=== PATIENT | female | born 1970 | race Caucasian/White ===

== ENCOUNTER 2017-11-09 15:59 | Emergency (ER) | payer MEDICAID, OTHER ==
[~2017-11-09] VITALS: Ht 162.6 cm; Wt 74.6 kg
[~2017-11-09 15:59] MED LIST: AMOX1TAB61 PO; GABA-826 PO; GABA300C10 PO; HYDR-3342 PO; HYDR200T PO; LEVO25TA45 PO; METH750T2 PO; OMEP40CA3 PO; PARO20TA98 PO; PRED50TA PO; RANI150T8 PO; TRAM50TA2 PO
[2017-11-09 16:04] VITALS: BP 167/98
[2017-11-09] MEDS ORDERED: DIAZEPAM 5 MG TABLET PO ONE (17:30)
[2017-11-09] MEDS ORDERED: OXYcodone/APAP 5/325MG TABLET PO ONE (17:30)
[2017-11-09] MEDS ORDERED: DIAZEPAM 5 MG TABLET ONE (17:35)
[2017-11-09] MEDS ORDERED: OXYcodone/APAP 5/325MG TABLET ONE (17:36)
[2017-11-09] MEDS ORDERED: ONDANSETRON ODT 4 MG ONE (17:40)
[2017-11-09] MEDS ORDERED: ONDANSETRON ODT 4 MG PO ONE (18:00)
== END 2017-11-09 18:05 | disposition home or self-care (01) ==
LOC: ED 18:01
DX: S46.011A Strain of muscle(s) and tendon(s) of the rotator cuff of right shoulder, initial encounter (principal); X58.XXXA Exposure to other specified factors, initial encounter; Y93.89 Activity, other specified; Y92.89 Other specified places as the place of occurrence of the external cause; Y99.8 Other external cause status
CPT/HCPCS: 73030; 99284; Q0162

== ENCOUNTER 2018-05-18 09:01 | Emergency (ER) | payer OTHER ==
[~2018-05-18 09:01] MED LIST changes: -HYDR200T PO; +HYDR200T72 PO; +RANI150T23 PO; -RANI150T8 PO
[2018-05-18] MEDS ORDERED: SODIUM CHLORIDE 0.9% 1,000 ML IV ONE (10:23)
[2018-05-18] MEDS ORDERED: MORPHINE SULFATE 4 MG/ML, 1ML IVPush PRN (10:30)
[2018-05-18] MEDS ORDERED: ONDANSETRON 2MG/ML, 2ML IVPush ONE (10:30)
[2018-05-18] MEDS ORDERED: SODIUM CHLORIDE FLUSH 10ML SYR IVF ONE (10:30)
[2018-05-18] MEDS ORDERED: SODIUM CHLORIDE 0.9% 1,000ML IVBOLUS ONE (10:30)
[2018-05-18] MEDS ORDERED: MORPHINE SULFATE 4 MG/ML, 1ML ONE (10:31)
[2018-05-18] MEDS ORDERED: ONDANSETRON 2MG/ML, 2ML ONE (10:31)
[2018-05-18 10:56] LABS: MEAN CORPUSCULAR HEMOGLOBIN 32.9 pg (27.0-34.8); MEAN CORPUSCULAR VOLUME 96.9 fL (80-100); MEAN PLATELET VOLUME 8.2 fL (7.4-10.4); PLATELET COUNT 326 x10^3/uL (130-400); RED BLOOD COUNT 5.06 x10^6/uL (3.82-5.3); RED CELL DISTRIBUTION WIDTH 13.9 % (9.6-15.2)
[2018-05-18] MEDS ORDERED: PLEASE ENTER HEIGHT AND WEIGHT MC SCH (11:00)
[2018-05-18 11:11] LABS: ALBUMIN 3.6 g/dL (3.4-5.0); ANION GAP 8 mmol/L (5-15); CALCIUM 9.1 mg/dL (8.5-10.1); CHLORIDE 109 mmol/L (98-107)
[2018-05-18 11:17] LABS: ALANINE AMINOTRANSFERASE 24 U/L (12-78); ALKALINE PHOSPHATASE 84 U/L (45-117); BILIRUBIN,TOTAL 0.5 mg/dL (0.2-1.0); CREATININE 0.99 mg/dL (0.55-1.02); TOTAL PROTEIN 6.9 g/dL (6.4-8.2)
[2018-05-18] MEDS ORDERED: PROMETHAZINE 25 MG/ML, 1ML IM ONE (12:00)
[2018-05-18] MEDS ORDERED: PROMETHAZINE 25 MG/ML, 1ML ONE (12:08)
[2018-05-18 12:14] LABS: CULTURE INDICATED? YES; MICROSCOPIC INDICATED
[2018-05-18 12:24] LABS: MD SCAN
[2018-05-18 12:25] LABS: BASOPHILS # (AUTO) 0.01 x10^3/uL (0-0.1); BASOPHILS % (AUTO) 0 % (0-1); EOSINOPHILS # (AUTO) 0.09 x10^3/uL (0-0.4); EOSINOPHILS % (AUTO) 1 % (1-7); LYMPHOCYTES # (AUTO) 0.69 x10^3/uL (1-3.4); LYMPHOCYTES % (AUTO) 4 % (22-44); MONOCYTES # (AUTO) 0.45 x10^3/uL (0.2-0.8); MONOCYTES % (AUTO) 2 % (2-9); NEUTROPHILS # (AUTO) 17.73 x10^3/uL (1.8-6.8); NEUTROPHILS % (AUTO) 94 % (42-75)
[2018-05-18 15:18] VITALS: BP 104/63
== END 2018-05-18 15:23 | disposition home or self-care (01) ==
LOC: ED 15:17
DX: R10.84 Generalized abdominal pain (principal); K52.89 Other specified noninfective gastroenteritis and colitis; E86.0 Dehydration; G89.29 Other chronic pain; M54.9 Dorsalgia, unspecified; Z88.8 Allergy status to other drugs, medicaments and biological substances; F17.200 Nicotine dependence, unspecified, uncomplicated
CPT/HCPCS: 36415; 74176; 80053; 81001; 83690; 84703; 85025; 87086; 93005; 96361; 96372; 96374; 96375; 99285; J2405; J2550; J7030

== ENCOUNTER 2018-11-29 12:12 | Emergency (ER) | payer OTHER ==
[~2018-11-29] VITALS: Ht 162.6 cm; Wt 76.0 kg
[2018-11-29 12:22] VITALS: BP 167/100
[2018-11-29] MEDS ORDERED: HYDROcodone/APAP 5/325 TABLET ONE (13:51)
[2018-11-29] MEDS ORDERED: ONDANSETRON ODT 4 MG ONE (13:53)
[2018-11-29] MEDS ORDERED: HYDROcodone/APAP 5/325 TABLET PO ONE (14:00)
[2018-11-29] MEDS ORDERED: ONDANSETRON ODT 4 MG PO ONE (14:00)
== END 2018-11-29 14:30 | disposition home or self-care (01) ==
LOC: ED 14:21
DX: S46.811A Strain of other muscles, fascia and tendons at shoulder and upper arm level, right arm, initial encounter (principal); E03.9 Hypothyroidism, unspecified; F17.200 Nicotine dependence, unspecified, uncomplicated; E78.5 Hyperlipidemia, unspecified; Z90.49 Acquired absence of other specified parts of digestive tract; Z90.710 Acquired absence of both cervix and uterus; X50.0XXA Overexertion from strenuous movement or load, initial encounter; Y93.89 Activity, other specified; Y92.69 Other specified industrial and construction area as the place of occurrence of the external cause; Y99.0 Civilian activity done for income or pay
CPT/HCPCS: 73030; 99283; Q0162